=== PATIENT | female | born 1995 | race Caucasian/White ===

== ENCOUNTER 2019-10-07 14:25 | Emergency (ER) | payer BC, SELFPAY ==
[2019-10-07 14:31] VITALS: BP 125/64; PULSE 68; RESP 15; TEMP 36.6; O2SAT 99
[2019-10-07 14:57] LABS: Bilirubin Negative (Negative); Blood Negative (Negative); Clarity Clear (Clear); Glucose Negative (Negative); Ketones Negative (Negative); Leukocyte Esterase Trace (Negative); Nitrite Negative (Negative); Specific Gravity 1.025 (1.005-1.025); Urobilinogen 0.2 EU/dL (Up TO 0.2); pH 5.5 (5-8)
[2019-10-07] MEDS: Normal Saline 1,000 ML 1000 ML IV (15:00)
[2019-10-07] MEDS: Normal Saline Flush 10 ML SYR IVP (15:00)
[2019-10-07 15:06] LABS: Bacteria Few HPF (Negative); Crystals Negative HPF (Negative); Epithelial Cells Moderate HPF (Negative); RBC Negative HPF (0-2)
[2019-10-07 15:07] LABS: C & S Indicated? Yes; Casts Negative LPF (Negative); Mucus Trace (Negative)
[2019-10-07 15:18] LABS: Abs Immature Grans 0.01 k/cumm (0.0-0.09); Absolute Basophil Count 0.03 k/cumm (0.0-0.2); Absolute Eosinophil Count 0.13 k/cumm (0.0-0.7); Absolute Monocyte Count 0.51 k/cumm (0.11-0.7); Absolute Neutrophil Count 3.66 k/cumm (1.2-6.7); Basophils % 0.6; Eosinophils % 2.4; HCT 41.1 % (36.0-46.0); HGB 13.9 g/dL (12.0-15.5); Immature Grans % 0.2; Lymphocytes % 20.2; Mean Corp. HGB Concentration 33.8 g/dL (32.0-36.0); Mean Corpuscular Volume 88.6 fL (80-95); Mean Platelet Volume 10.6 fL (8.0-11.0); Monocytes % 9.4; Neutrophils % 67.2; Platelet Count 297 x1000/uL (130-400); RBC 4.64 m/cumm (4.00-5.20); RBC Distribution Width 12.8 % (11.7-14.6); White Blood Cell Count 5.44 k/cumm (4.4-10.8)
[2019-10-07 15:29] LABS: ALT 18 U/L (14-59); AST 14 U/L (15-37); Albumin 4.1 g/dL (3.4-5.0); Alkaline Phosphatase 56 U/L (46-116); Anion Gap 6.3 mmol/L (3-11); BUN 8 mg/dL (7-18); Bilirubin, Total 0.5 mg/dL (0.2-1.0); CO2 28.7 mmol/L (21.0-32.0); CREATININE 0.69 mg/dL (0.55-1.02); Calcium 8.8 mg/dL (8.5-10.1); Chloride 103 mmol/L (98-107); Glucose 91 mg/dL (70-100); Lipase 87 U/L (73-393); Potassium 3.9 mmol/L (3.5-5.1); Sodium 138 mmol/L (136-145); Total Protein 7.4 g/dL (6.4-8.2)
[2019-10-07 15:43] LABS: HCG Qual (Serum) Negative
--- NOTE | 2019-10-07 15:58 | ED.GENADUL_ITS ---
Discharge Plan Disposition Patient Disposition: HOME Condition: Good Discharge Details Chief Complaint: Abd Prob Clinical Impression: Abdominal pain Primary Care Provider: Adelita,Local ED Provider: Funmilayo Sanchez Home Meds and New Rx's Prescriptions: New ondansetron 4 mg tablet,disintegrating 4 mg PO Q6H PRN (Reason: nausea and vomiting) Qty: 10 RF: 0 No Action Flovent HFA 120 PUFF HFA aerosol inhaler 2 puff Inhalation BID RF: 0 levalbuterol tartrate [Xopenex HFA] 15 GM HFA aerosol inhaler 2 puff Inhalation PRNRF: 0 sertraline 50 MG tablet 50 mg PO DAILY RF: 0 loratadine 10 MG tablet 10 mg PO DAILY Qty: 30 RF: 0 pantoprazole 20 mg Tablet,Delayed Release (Dr/Ec) 15 mg PO DAILY RF: 0 atomoxetine [Strattera] 100 mg Capsule 100 mg PO RF: 0 Discharge Instructions Instructions: Abdominal Pain (ED) Additional Instructions: Drink plenty of fluids. Rest activities as tolerated. Avoid drugs or alcohol. Tylenol for soreness if needed. For any increase in your abdominal pain, alarming symptoms, worsening or for any new symptoms such as fevers or bowel changes have immediate reevaluation in the emergency room as discussed. Follow-up closely with the [facility] practitioner for reevaluation tomorrow. Your labs are reassuring today however if you have any concerns of persistent or worsening pain please return to the emergency room for more advanced imaging as discussed Stand Alone Forms: School Release Discharge Data Discharge Date/Time-TO BE ENTERED AT DEPARTURE: 10/07/19 17:17 Medical Decision Making <CONNOR Trevizo - Last Filed: 10/08/19 16:41> Is a 24-year-old patient who presents for complaints of abdominal pain which began at approximately 11:00 this morning. Patient reports she awoke without any abdominal pain was able to eat and drink without difficulty. Patient reports she went to class during class noted onset of abdominal discomfort in the left side of her abdomen. She had the urge to go to the bathroom and felt that the abdominal pain was likely gas related, try to have a bowel movement and was unsuccessful. Patient returned to class then became quite nauseous and ultimately did vomit the food she ate at lunch. Patient reports no persistent nausea at this time. Patient does report her abdominal pain is somewhat improved. She reports her pain at this time is approximately a 5 out of 10 and gradually improving. Patient denies any radiating pain into the back. Patient has no surgical history. Patient denies urinary urgency, frequency or dysuria. On exam patient has a mild left-sided mid abdominal tenderness. No significant epigastric, periumbilical or lower abdominal pain with palpation. No ovarian tenderness with palpation. No CVA tenderness. Discussed labs as well as possible imaging given patient has a fairly benign exam at this time with no obvious peritoneal symptoms. Patient would prefer labs as well as close observation. Patient's labs are ultimately unremarkable for an identifiable infection source, normal kidney and liver function. Patient's urinalysis shows trace leukocyte esterase but no other associated signs of infection, urine culture pending. Subsequent reevaluation of the patient reveals persistent improvement. A continued benign abdominal exam. I did discuss with the patient imaging studies at this time given she still does have what she describes as a 5 out of 10 pain however she does report it does continue to improve. It is patient's preference which I agree with given her lack of significant abdominal pain on exam and normal appearing labs to defer imaging studies at this time and pursue close follow-up. Patient will follow up with the practitioner at the [facility] tomorrow. Patient advised for any increase in her abdominal pain, worsening or newly associated symptoms to reevaluate in the emergency room for possible imaging studies. Patient agrees with this plan of care. Patient was signed out pending a mono test. <CONNOR Lopez - Last Filed: 10/07/19 17:04> Care was transitioned to myself from Nesha Dorado PA-C, with a Monospot screening pending. Patient presented to the ED with chief complaint of left mid abdominal discomfort and nausea/vomiting that came on just a few hours prior to arrival. Endorses vomiting x1. Please see Nesha's documentation regarding initial presentation and exam. Her Monospot screening is negative. Patient reports that her abdominal pain has subsided she is feeling much improved. She has received her IV fluids. Labs are reassuring. At this point, patient feels ready for discharge. I do not see any evidence of acute pathology in her abdomen. Exam and labs are reassuring. Patient will be discharged home with a prescription for Zofran in the event that her nausea or vomiting recurs. School is to request. She is given strict return precautions. I advised that she follow-up with the [facility] on Saturday for reevaluation. All of her questions and concerns were addressed and she is in agreement with this plan. HPI <CONNOR Trevizo - Last Filed: 10/08/19 16:41> General Date/Time Provider Initiated Documentation: 10/07/19 14:46 . HPI Narrative: Is a 24-year-old patient who presents for complaints of abdominal pain which began at approximately 11:00 this morning. Patient reports she awoke without any abdominal pain was able to eat and drink without difficulty. Patient reports she went to class during class noted onset of abdominal discomfort in the left side of her abdomen. She had the urge to go to the bathroom and felt that the abdominal pain was likely gas related, try to have a bowel movement and was unsuccessful. Patient returned to class then became quite nauseous and ultimately did vomit the food she ate at lunch. Patient reports no persistent nausea at this time. Patient does report her abdominal pain is somewhat i mproved. She reports her pain at this time is approximately a 5 out of 10 and gradually improving. Patient denies any radiating pain into the back. Patient has no surgical history. Patient denies urinary urgency, frequency or dysuria. Patient denies nasal congestion sore throat or cough. Patient denies fever, chills. She does report nausea and one episode of vomiting. No associated diarrhea. Patient denies cramping abdominal pain. Denies back pain. No radiating symptoms. Related Data Home Medications Medication Instructions Recorded Confirmed Flovent HFA 2 puff INHALATION BID 12/25/15 10/07/19 levalbuterol tartrate [Xopenex HFA] 2 puff INHALATION PRN 12/25/15 12/25/15 sertraline 50 mg PO DAILY 03/21/18 10/07/19 loratadine 10 mg PO DAILY #30 tablet 03/31/18 10/07/19 atomoxetine [Strattera] 100 mg PO 10/07/19 ondansetron 4 mg PO Q6H PRN #10 tab 10/07/19 pantoprazole 15 mg PO DAILY 10/07/19 10/07/19 Previous Rx's Medication Instructions Recorded loratadine 10 mg PO DAILY #30 tablet 03/31/18 ondansetron 4 mg PO Q6H PRN #10 tab 10/07/19 Allergies Allergy/AdvReac Type Severity Reaction Status Date / Time lisdexamfetamine dimesylate Allergy Unverified 10/07/19 14:35 [From Alex] General Stated Complaint: Abd Prob KENNEY: 3 Review of Systems <CONNOR Trevizo - Last Filed: 10/08/19 16:41> All systems reviewed & are unremarkable except as noted in HPI and below Constitutional Constitutional: Denies chills, Denies fatigue, Denies fever(s), Denies headache(s) and Denies malaise ENT Ears, Nose, Mouth, and Throat: Denies otalgia, Denies headache(s), Denies neck pain and Denies sore throat Respiratory Respiratory: Denies cough Gastrointestinal Gastrointestinal: Reports abdominal pain, Denies bloating, Denies heartburn, Denies diarrhea, Reports nausea and Reports vomiting Genitourinary Genitourinary: Denies urinary frequency, Denies dysuria, Denies flank pain and Denies urinary urgency Musculoskeletal Musculoskeletal: Denies back pain and Denies neck pain Neurologic Neurologic: Denies headache(s) Endocrine Endocrine: Denies fatigue PFSH <CONNOR Trevizo - Last Filed: 10/08/19 16:41> Social History Smoking/Tobacco Use Status: Never Drug use: Never Do you feel safe at home: Yes Do you feel safe in your relationship?: Yes Exam <CONNOR Trevizo - Last Filed: 10/08/19 16:41> Narrative Exam Narrative: CONST: Healthy appearing patient, in no acute distress. Well hydrated. Alert and alert. HENMT: Head nomocephalic, normal to inspection. Atraumatic. Hearing grossly normal. External ear canal no erythema or swelling. TM normal bilaterally. Nose normal to inspection. No rhinnorhea. Normal facial exam. Oral mucosa normal. Tounge normal. Dentition normal. Normal posterior oropharynx. Uvula midline. EYES: General normal appearance. Alignment normal. Eyelids normal. Conjunctiva normal. Sclera normal. PERRL. NECK: Normal visual inspection. FROM. No lymphadenopathy. Trachea midline. No Midline tenderness. CHEST: Normal insepection of the chest. RESP: Normal respiratory effort. Speaking full sentences. No cough. No wheezing. No retractions. Clear to auscaltation. Breath sound equal and present bilaterally. CARDIO: No JVD. Normal PMI. Regular Rate. Regular Rhythm. Normal peripheral pulses. GI: Normal inspection of abdomen. No distension. Soft. Mild left mid abdominal tenderness. No right upper quadrant, right lower quadrant tenderness. No pain in the suprapubic area. Bowel sounds present in all 4 quadrants. No rebound. No gaurding. No peritoneal signs MUSCULOSKELETAL: Normal Gait. FROM of all extremities. Distal neurovascularly intact. Sensation intact distally. Back: No CVA tenderness bilaterally Course <CONNOR Trevizo - Last Filed: 10/08/19 16:41> Vital Signs Vital signs: Vital Signs Temperature 36.6 C 10/07/19 14:31 Pulse 68 10/07/19 14:31 Respiratory Rate 15 10/07/19 14:31 Blood Pressure 125/64 10/07/19 14:31 Pulse Oximetry 99 10/07/19 14:31 Temperature 36.6 C 10/07/19 14:31 Temperature Source Skin 10/07/19 14:31 Pulse 68 10/07/19 14:31 Respiratory Rate 15 10/07/19 14:31 Respiratory Effort 10/07/19 14:37 Blood Pressure 125/64 10/07/19 14:31 Blood Pressure Position Sitting 10/07/19 14:31 Pulse Oximetry 99 10/07/19 14:31 Oxygen Delivery Method Room Air 10/07/19 14:31 Oxygen Flow Rate 0 10/07/19 14:31 Pain Level 5 10/07/19 14:31 Lab/Test Results Lab/Test Results: 10/07/19 14:45 Urine - Reflex from Ua Urine Culture - Pending Laboratory Tests Range/Units 10/07/19 10/07/19 10/07/19 14:45 15:00 15:00 WBC (4.4-10.8) k/cumm 5.44 RBC (4.00-5.20) m/cumm 4.64 Hgb (12.0-15.5) g/dL 13.9 Hct (36.0-46.0) % 41.1 MCV (80-95) fL 88.6 MCH (27.0-33.0) pg 30.0 MCHC (32.0-36.0) g/dL 33.8 RDW (11.7-14.6) % 12.8 Plt Count (130-400) x1000/uL 297 MPV (8.0-11.0) fL 10.6 Immature Gran % 0.2 Neutrophils % 67.2 Lymphocytes % 20.2 Monocytes % 9.4 Eosinophils % 2.4 Basophils % 0.6 Absolute Neutrophils (1.2-6.7) k/cumm 3.66 Absolute Lymphocytes (1.2-3.4) k/cumm 1.10 L Absolute Monocytes (0.11-0.7) k/cumm 0.51 Absolute Eosinophils (0.0-0.7) k/cumm 0.13 Absolute Basophils (0.0-0.2) k/cumm 0.03 Sodium (136-145) mmol/L 138 Potassium (3.5-5.1) mmol/L 3.9 Chloride (98-107) mmol/L 103 Carbon Dioxide (21.0-32.0) mmol/L 28.7 Anion Gap (3-11) mmol/L 6.3 BUN (7-18) mg/dL 8 Creatinine (0.55-1.02) mg/dL 0.69 Estimated GFR/1.73 m2 (mL/min/1.73m2) >= 60.00 Glucose (70-100) mg/dL 91 Calcium (8.5-10.1) mg/dL 8.8 Total Bilirubin (0.2-1.0) mg/dL 0.5 AST (15-37) U/L 14 L ALT (14-59) U/L 18 Alkaline Phosphatase (46-116) U/L 56 Total Protein (6.4-8.2) g/dL 7.4 Albumin (3.4-5.0) g/dL 4.1 Lipase (73-393) U/L 87 Serum HCG, Qual Urine Color (Yellow) Yellow Urine Clarity (Clear) Clear Urine pH (5-8) 5.5 Ur Specific [place] (1.005-1.025) 1.025 Urine Protein (Negative) mg/dL Negative Urine Ketones (Negative) mg/dL Negative Urine Blood (Negative) Negative Urine Nitrite (Negative) Negative Urine Bilirubin (Negative) Negative Urine Urobilinogen (Up TO 0.2) EU/dL 0.2 Ur Leukocyte Esterase (Negative) Trace H Urine RBC (0-2) HPF Negative Urine WBC (0-5) HPF 3-5 Ur Epithelial Cells (Negative) HPF Moderate Urine Crystals (Negative) HPF Negative Urine Bacteria (Negative) HPF Few Urine Casts (Negative) LPF Negative Urine Mucus (Negative) Trace Ur Culture Indicated? Yes Urine Glucose (Negative) mg/dL Negative Range/Units 10/07/19 15:00 WBC (4.4-10.8) k/cumm RBC (4.00-5.20) m/cumm Hgb (12.0-15.5) g/dL Hct (36.0-46.0) % MCV (80-95) fL MCH (27.0-33.0) pg MCHC (32.0-36.0) g/dL RDW (11.7-14.6) % Plt Count (130-400) x1000/uL MPV (8.0-11.0) fL Immature Gran % Neutrophils % Lymphocytes % Monocytes % Eosinophils % Basophils % Absolute Neutrophils (1.2-6.7) k/cumm Absolute Lymphocytes (1.2-3.4) k/cumm Absolute Monocytes (0.11-0.7) k/cumm Absolute Eosinophils (0.0-0.7) k/cumm Absolute Basophils (0.0-0.2) k/cumm Sodium (136-145) mmol/L Potassium (3.5-5.1) mmol/L Chloride (98-107) mmol/L Carbon Dioxide (21.0-32.0) mmol/L Anion Gap (3-11) mmol/L BUN (7-18) mg/dL Creatinine (0.55-1.02) mg/dL Estimated GFR/1.73 m2 (mL/min/1.73m2) Glucose (70-100) mg/dL Calcium (8.5-10.1) mg/dL Total Bilirubin (0.2-1.0) mg/dL AST (15-37) U/L ALT (14-59) U/L Alkaline Phosphatase (46-116) U/L Total Protein (6.4-8.2) g/dL Albumin (3.4-5.0) g/dL Lipase (73-393) U/L Serum HCG, Qual Negative Urine Color (Yellow) Urine Clarity (Clear) Urine pH (5-8) Ur Specific [place] (1.005-1.025) Urine Protein (Negative) mg/dL Urine Ketones (Negative) mg/dL Urine Blood (Negative) Urine Nitrite (Negative) Urine Bilirubin (Negative) Urine Urobilinogen (Up TO 0.2) EU/dL Ur Leukocyte Esterase (Negative) Urine RBC (0-2) HPF Urine WBC (0-5) HPF Ur Epithelial Cells (Negative) HPF Urine Crystals (Negative) HPF Urine Bacteria (Negative) HPF Urine Casts (Negative) LPF Urine Mucus (Negative) Ur Culture Indicated? Urine Glucose (Negative) mg/dL POC- Test(urine) Negative Sign Out <CONNOR Trevizo - Last Filed: 10/08/19 16:41> Sign Out Data: Sign Out Comment: Signout pending mono dispo Last updated by Laquita Mansfield PA at 10/07/19 16:04
[2019-10-07 16:36] LABS: Mono Screening Negative (Negative)
[2019-10-07 17:09] VITALS: BP 109/67; PULSE 72; RESP 14; TEMP 37.4; O2SAT 100
== END 2019-10-07 17:17 | disposition home or self-care (01) ==
PROVIDERS: Physician Assistant; Emergency Provider Physician Assistant; PCP Nurse Practitioner Family
DX: R10.32 Left lower quadrant pain (principal); R10.12 Left upper quadrant pain; R11.2 Nausea with vomiting, unspecified
CPT/HCPCS: 36415; 80053; 83690; 96360; 99283; 81003; 81015; 84703; 85025; 86308; 87086